=== PATIENT | female | born 1980 | race Caucasian/White ===

== ENCOUNTER 2019-10-16 09:58 | Outpatient (CLI) | payer BC | END 2019-10-16 13:54 | disposition home or self-care (01) | LOC: TOM 09:58 | DX: R10.2 Pelvic and perineal pain (principal); N83.209 Unspecified ovarian cyst, unspecified side ==

== ENCOUNTER 2020-01-29 10:30 | Day surgery (SDC) | payer OTHER | END 2020-01-29 16:25 | disposition home or self-care (01) | LOC: AMB-ENDOS 10:30 → ADM 14:00 → AMB-ENDOS 16:25 | PROVIDERS: ATTEND Colon & Rectal Surgery | DX: K62.89 Other specified diseases of anus and rectum (principal); K64.1 Second degree hemorrhoids ==

== ENCOUNTER 2020-09-05 09:44 | Outpatient (CLI) | payer OTHER | END 2020-09-05 10:29 | disposition home or self-care (01) | LOC: MAMO-SONO 09:44 | PROVIDERS: ATTEND Obstetrics & Gynecology | DX: Z12.31 Encounter for screening mammogram for malignant neoplasm of breast (principal); N64.59 Other signs and symptoms in breast; N60.11 Diffuse cystic mastopathy of right breast; N60.12 Diffuse cystic mastopathy of left breast; D24.1 Benign neoplasm of right breast; D24.2 Benign neoplasm of left breast ==

== ENCOUNTER 2021-02-24 08:44 | Outpatient (CLI) | payer OTHER | END 2021-02-24 08:46 | disposition home or self-care (01) | LOC: SONOGRAMA 08:44 | PROVIDERS: ATTEND Obstetrics & Gynecology | DX: N64.59 Other signs and symptoms in breast (principal); N60.12 Diffuse cystic mastopathy of left breast; N60.11 Diffuse cystic mastopathy of right breast ==